=== PATIENT | male | born 1965 | race Caucasian/White ===

== ENCOUNTER 2024-11-29 07:06 | Outpatient (CLI) | payer OTHER, SELFPAY ==
--- NOTE | 2024-11-29 07:15 | CRLHL7_ITS ---
For Patients: As a result of the Century Cures Act, medical imaging exams and procedure reports are released immediately into your electronic medical record. You may view this report before your referring provider. If you have questions, please contact your health care provider. EXAM: MRI OF THE LEFT SHOULDER WITHOUT CONTRAST CLINICAL INDICATION: Left shoulder pain. COMPARISON PLAIN FILMS: 11/15/2024. COMPARISON CROSS-SECTIONAL IMAGING STUDIES: None available at time of interpretation. TECHNICAL: Axial, sagittal oblique and coronal oblique T1, PD, PD FS and T2-weighted images. Shoulder surface coil. FINDINGS: ROTATOR CUFF TENDONS AND MUSCLES AND DELTOID: Supraspinatus: Full-thickness tear with medial retraction to the superior glenoid. Diffuse thickening and fraying of the retracted tendon consistent with advanced tendinopathy. No muscle atrophy or edema. Infraspinatus: Full-thickness tear of the infraspinatus tendon with medial retraction. There is additional delaminating tear at the myotendinous junction. Diffuse thickening and fraying of the retracted tendon consistent with advanced tendinopathy. Mild muscle edema. Jpjd-ju-[id number] muscle atrophy. Subscapularis: [id number] tendinopathy. No tendon tear. No muscle atrophy or edema. Teres Minor: No tendinosis, tendon tearing, muscle atrophy or muscle edema. Deltoid: No muscle atrophy or edema. BURSA: Subacromial-subdeltoid: Fluid in the subacromial subdeltoid bursa. BICEPS TENDON, LONG HEAD: The long head of the biceps tendon is appropriately positioned within the bicipital groove without tendon subluxation or dislocation. The biceps christopher mechanism is intact. The biceps anchor appears grossly intact. There is no significant tendinosis or tendon tearing. CORACOACROMIAL ARCH: Acromial Morphology: Type 2 acromial morphology. No abnormal lateral or anterior downward sloping of the acromion. Moderate-sized broad subacromial enthesophyte. No os acromiale. Acromiohumeral Interval: Superior subluxation of the humeral head with narrowed interval. Coracohumeral Interval: Normal. ACROMIOCLAVICULAR JOINT REGION: AC Joint: Prominent arthropathy with inferior marginal osteophytes. Ligaments: The coracoclavicular ligaments are intact. GLENOHUMERAL JOINT: Joint space: Moderate-sized joint effusion. Mild synovitis. No loose body. Humeral Head Articular Cartilage: No focal cartilage defect or underlying subchondral marrow changes. Glenoid Articular Cartilage: Moderate chondromalacia with subchondral cystic change focally in the posterior glenoid. Labrum: No labral tear or paralabral cyst. Alignment: Superior subluxation of the humeral head. No posterior decentering. Capsule: No capsular edema or abnormal capsular thickening. OSSEOUS STRUCTURES: No fracture, marrow edema or marrow replacement process. OTHER FINDINGS: There is no abnormality within the suprascapular or spinoglenoid notches nor within the quadrilateral space. No axillary adenopathy or mass. IMPRESSION: 1. Full-thickness tear of the entire supraspinatus tendon with medial retraction and advanced tendinopathy. 2. Full-thickness tear of the entire infraspinatus tendon with medial retraction, delaminating tear at the myotendinous junction, advanced tendinopathy, mild muscle edema and mild to moderate muscle atrophy. 3. Subscapularis tendinopathy. 4. Focal chondromalacia in the posterior glenoid. 5. Glenohumeral joint effusion and fluid in the subacromial subdeltoid bursa. 6. Superior subluxation of the humeral head. 7. Subacromial enthesophyte. 8. Prominent joint arthropathy in the acromioclavicular joint. Dictated by Dallin Pires MD @ 11/30/2024 8:31:09 AM (Electronically Signed)
== END 2024-11-29 07:07 | disposition home or self-care (01) ==
PROVIDERS: PCP Internal Medicine; Visit Provider Internal Medicine
DX: M25.512 Pain in left shoulder (principal); S46.812A Strain of other muscles, fascia and tendons at shoulder and upper arm level, left arm, initial encounter; M75.102 Unspecified rotator cuff tear or rupture of left shoulder, not specified as traumatic; M25.412 Effusion, left shoulder; M94.212 Chondromalacia, left shoulder; S49.90XA Unspecified injury of shoulder and upper arm, unspecified arm, initial encounter
CPT/HCPCS: 73221

== ENCOUNTER 2024-12-23 07:02 | Day surgery (SDC) | payer OTHER, SELFPAY ==
[2024-12-23] MEDS: LACTATED RINGERS 1000 ML 1,000 ML 100 ML IV (07:15)
[2024-12-23 07:24] VITALS: BMI 33.9
[2024-12-23 07:33] VITALS: BP 141/87; PULSE 54; RESP 16; TEMP 37; O2SAT 97
[2024-12-23] MEDS: SODIUM CHLORIDE 0.9 % (FLUSH) 10 ML SYRINGE IVF (07:43)
--- NOTE | 2024-12-23 08:54 | W.PM.H&PU ---
History & Physical Update History & Physical Update H&P Reviewed and patient assessed: The following changes are noted below H&P Updates: Patient took Lovenox dose this morning. Will need to reschedule surgery to next week.
--- NOTE | 2024-12-23 09:15 | SUR.PREOP ---
Patient surgery cancelled due to patient giving himself Lovenox injection this morning at 630am.
== END 2024-12-23 09:19 | disposition home or self-care (01) ==
LOC: OR 07:03
PROVIDERS: PCP Internal Medicine; Visit Provider Orthopaedic Surgery
PROC: (CPT 29805; principal; 2024-12-23 13:15)
DX: Z53.09 Procedure and treatment not carried out because of other contraindication (principal); Z79.01 Long term (current) use of anticoagulants
CPT/HCPCS: J7120

== ENCOUNTER 2024-12-26 09:40 | Day surgery (SDC) | payer OTHER, SELFPAY ==
[2024-12-26] VITALS (13 sets, daily range): BP systolic 115–156; BP diastolic 72–140; PULSE 61–72; RESP 12–24; TEMP 36.3–36.6; O2SAT 95–97; BMI 33.5
[2024-12-26] MEDS: LACTATED RINGERS 1000 ML 1,000 ML 100 ML IV (09:45)
[2024-12-26] MEDS: SODIUM CHLORIDE 0.9 % (FLUSH) 10 ML SYRINGE IVF (09:59)
[2024-12-26] MEDS: fentaNYL 100 MCG/2 ML inj IVP (10:50)
[2024-12-26] MEDS: MIDAZOLAM HCL 1 MG/ML inj IVP (10:50)
--- NOTE | 2024-12-26 10:58 | SUR.PREOP ---
TIME?OUT:?1050 PT/eloisa howard RN/zo valverde MDA?VERIFICATION?OF?SURGICAL?SITE,?PROCEDURE,?AND?CONSENT OBTAINED?PRIOR?TO?INVASIVE?PROCEDURE.
--- NOTE | 2024-12-26 11:00 | W.PM.H&PU ---
History & Physical Update History & Physical Update H&P Reviewed and patient assessed: No changes noted
--- NOTE | 2024-12-26 11:00 | PM.ORPRC ---
Procedure Note Date of procedure: 12/26/24 Procedure: PREOPERATIVE DIAGNOSES: 1. Left shoulder rotator cuff tear. 2. Left shoulder subacromial impingement syndrome. POSTOPERATIVE DIAGNOSES: 1. Left shoulder rotator cuff tear - supraspinatus and infraspinatus 2. Left shoulder subacromial impingement syndrome. 3. Left shoulder chondromalacia NAME OF OPERATION: 1. Left shoulder arthroscopic rotator cuff repair. 2. Left shoulder arthroscopic bursectomy, subacromial decompression/partial acromioplasty. 3. Left shoulder arthroscopic limited debridement SURGEON: Guanakito Stark MD LOGISTICS ANALYTICS MANAGER: Daphne Avalos P.A.-C.. An photographer assistant was critical for this case to aid in patient positioning, suture manipulation, arm positioning, instrument positioning, and wound closure. ANESTHESIA: General plus preoperative supraclavicular block. IMPLANTS: Arthrex 2.6 mm FiberTak anchors x3 and 5.5 mm BioComposite SwiveLock anchors x2 COMPLICATIONS: None ESTIMATED BLOOD LOSS: 10 mL INDICATIONS: The patient is a pleasant, 59-year-old male who who has experienced left shoulder pain and weakness following an injury that he sustained approximately 6 weeks ago. Physical exam and imaging were consistent with large, acute rotator cuff tear. Given these findings, recommendation was made for surgery to repair the cuff and restore shoulder function. FINDINGS: Exam under anesthesia revealed stable shoulder with full range of motion. The diagnostic arthroscopy revealed area of grade 3 chondromalacia involving the inferior glenoid with degenerative tearing of the superior and inferior labrum. The Subscapularis tendon was intact with healthy insertion site. The rotator cuff tendon was found to have full-thickness tear of the entire supraspinatus and infraspinatus, which were retracted medially just lateral to the glenoid. Teres minor was intact. The long head of the biceps tendon was intact and located within the bicipital groove. There was degenerative tearing of the superior and inferior labrum. No loose bodies were identified within the pouch or subscapularis recess. In the subacromial space there was diffuse bursal inflammation and downsloping anterior acromion. PROCEDURE: Following a thorough discussion of risks, benefits, and alternatives, consent was obtained and the operative shoulder was marked. A supraclavicular nerve block was performed by anesthesia staff in preop holding. The patient was brought to the operating room and placed supine on the operating table. Induction of anesthesia was completed, and patient was given IV clindamycin preoperatively for prophylaxis. Patient was placed into the beach chair position. Head was placed in the padded head neck surgeon in neutral alignment, and all bony prominences were well padded. The operative shoulder and upper extremity were prepped and draped in the appropriate sterile fashion using ChloraPrep. A surgical time-out was performed confirming patient identity, surgical site, and procedure. The glenohumeral joint was injected with 40 mL of normal saline using and 18g spinal needle from a posterior approach. Posterior portal was established. Anterior portal was established after localization with a spinal needle and a 7.0 mm cannula was placed here. Diagnostic arthroscopy was then performed with findings as noted above. Frayed cartilage of the inferior glenoid was debrided with the motorized shaver. After debridement remnant cartilage was stable. Frayed cartilage of the superior and inferior labrum were also debrided using the motorized shaver. After debridement, the biceps anchor was confirmed to be stable. Can was then placed in the subacromial space. A lateral portal was established after localization with spinal needle. The passport cannula was placed here. Subacromial bursectomy was performed with a combination of radiofrequency ablator, and shaver. Bone-cutting shaver was used to perform and partial acromioplasty removing the downsloping anterior aspect of the acromion. Following this, further inspection of the rotator cuff was performed. This identified the tear as noted above. The margins of the tear were debrided, and the greater tuberosity was lightly decorticated with the bone-cutting shaver to create. The cuff was easily mobilized back to its footprint. Next, three knotless 2.6 mm FiberTak anchors were placed along the medial aspect of the supraspinatus and infraspinatus footprints. Prior to placement of each anchor, small stab incisions were made off the lateral aspect of the acromion. After placement of the anchors, the [employer] suture Passer was used to shuttle each set of sutures through the rotator cuff just lateral to the musculotendinous junction. Once all all 3 sets of sutures had been passed, medial row repair was completed using the knotless sutures. Lateral row repair was then completed using two 5.5 SwiveLock anchors, which were placed lateral to the supraspinatus and infraspinatus footprint. Each lateral row anchor incorporated 1 FiberTape from the previously passed medial row anchors. The knotless sutures from each lateral row anchor were used to further augment the cuff repair. After all anchors had been placed in sutures tension, remnant sutures were cut and removed. Excellent securing of the rotator cuff was achieved with good tension on the cuff. The rotator cuff was re-probed and found to be stable. Surgical instruments and cannulas were removed. Excess fluid was drained, portals were closed with 3-0 nylon. Sterile dressings were applied followed by application of an abduction sling.. The patient was rotated back to the supine position, awoken from anesthesia, and transferred to the PACU in stable condition. PLAN: 1. Discharged to home day of surgery. 2. Ice for pain and swelling. 3. Tylenol and oxycodone as needed for pain control. 4. Abduction sling at all times except for ROM and showering. -Remove sling several times daily for pendulum exercises finger, wrist, and elbow range of motion. 5. Follow-up in orthopedic clinic in 10-14 days for wound check and suture removal. 6. Will initiate formal physical therapy 5-6 weeks postoperatively per the complex rotator cuff repair protocol
[2024-12-26] MEDS: CLINDAMYCIN 900 MG/50 ML-D5W 900 MG/50 ML PIGGYBACK 100 MG IVPB (11:30)
--- NOTE | 2024-12-26 11:53 | P.NB_ITS ---
Nerve Block Nerve Block Time Seen by Provider: 10:53 Date Seen: 12/26/24 Type of block requested by surgeon for post-operative analgesia: supraclavicular Side: left Time out performed: Yes Verification of patient name: Yes Verification of date of : Yes Site marking: site marked Name of person performing procedure: Denys Continuous monitoring Was continuous monitoring of O2 sat, B/P, vocational rehabilitation supervisor, recorded every 15 minutes?: Yes Procedure Checklist: sterile prep, needles and gloves Ultrasound guided. Images saved: Yes Medications given in 5ml increments after negative aspiration: Marcaine %: 0.25 mL: 5 Needle gauge: 22 and Exparel mL: 10 Patient tolerated procedure well: Yes Block Charges Block Charge (with Pro Fee): Brachial Plexus Use of Ultrasound Machine for Block: Yes- US Guidance/pain block
--- NOTE | 2024-12-26 11:54 | P.ANES_ITS ---
Anesthesia Charges Start Date/Time Anesthesia Start Date: 12/26/24 Anesthesia Start Time: 11:06 Stop Date/Time Anesthesia Stop Date: 12/26/24 Anesthesia Stop Time: 14:16 Coding CPT Codes CPT Codes: ANESTH SURGERY OF SHOULDER - 38294 ([id number]) P2 - PATIENT W/MILD SYST DISEASE, QK - CRUSHER LOADER OPERATOR 2-4 CNCRNT ANES PROC, QX - PIECE PRESSER SVC W/ MD MED DIRECTION
--- NOTE | 2024-12-26 11:54 | W.ANESCHARGE ---
Anesthesia Charges Start Date/Time Anesthesia Start Date: 12/26/24 Anesthesia Start Time: 11:06 Stop Date/Time Anesthesia Stop Date: 12/26/24 Anesthesia Stop Time: 14:16 Coding CPT Codes CPT Codes: ANESTH SURGERY OF SHOULDER - 54107 ([id number]) P2 - PATIENT W/MILD SYST DISEASE, QK - BUCKLE STRINGER 2-4 CNCRNT ANES PROC, QX - BIOMED TECH SVC W/ MD MED DIRECTION
[2024-12-26] MEDS: EPINEPHrine 1 MG in SODIUM CHLORIDE IRRIG SOLUTION 3,000 ML 9003 MG IRRIGATION ×4 (12:00→13:30)
[2024-12-26] MEDS: LIDOCAINE 1%-EPI 1:100,000 20 ML INFILTRATI (12:24)
[2024-12-26] MEDS: EPINEPHrine 1 MG in SODIUM CHLORIDE IRRIG SOLUTION 3,000 ML 3000 MG IRRIGATION ×2 (13:20→13:40)
--- NOTE | 2024-12-26 14:17 | P.ANES_ITS ---
Anesthesia Charges Start Date/Time Anesthesia Start Date: 12/26/24 Anesthesia Start Time: 11:06 Stop Date/Time Anesthesia Stop Date: 12/26/24 Anesthesia Stop Time: 14:16 Coding CPT Codes CPT Codes: ANESTH SURGERY OF SHOULDER - 32335 ([id number]) P2 - PATIENT W/MILD SYST DISEASE, QK - HYDRAULIC ENGINEER 2-4 CNCRNT ANES PROC, QX - EXECUTIVE MARKETING ASSISTANT SVC W/ MD MED DIRECTION
--- NOTE | 2024-12-26 14:17 | W.ANESCHARGE ---
Anesthesia Charges Start Date/Time Anesthesia Start Date: 12/26/24 Anesthesia Start Time: 11:06 Stop Date/Time Anesthesia Stop Date: 12/26/24 Anesthesia Stop Time: 14:16 Coding CPT Codes CPT Codes: ANESTH SURGERY OF SHOULDER - 96258 ([id number]) P2 - PATIENT W/MILD SYST DISEASE, QK - INTERIOR PLANT CARETAKER 2-4 CNCRNT ANES PROC, QX - HORSE TRAINER SVC W/ MD MED DIRECTION
--- NOTE | 2024-12-26 14:28 | SUR.PHASEI ---
Patient arrived in PACU awake and appropriate. Complained of some burning sensation in the left shoulder. When asked, stated pain level was a 2.
--- NOTE | 2024-12-26 14:44 | SUR.PHASEI ---
Patient meets discharge criteria for PACU.
== END 2024-12-26 15:47 | disposition home or self-care (01) ==
PROVIDERS: PCP Internal Medicine; Visit Provider Orthopaedic Surgery
PROC: (CPT 29805; principal; 2024-12-26 11:00)
DX: M75.122 Complete rotator cuff tear or rupture of left shoulder, not specified as traumatic (principal); M75.42 Impingement syndrome of left shoulder; M94.212 Chondromalacia, left shoulder; G89.18 Other acute postprocedural pain; R73.03 Prediabetes; I10 Essential (primary) hypertension; D68.59 Other primary thrombophilia; Z79.01 Long term (current) use of anticoagulants; Z86.718 Personal history of other venous thrombosis and embolism
CPT/HCPCS: 29827; 29826; 29822; 01630; 64415; 76942; C1713; J0171; J0330; J0665; J0666; J0736; J1100; J2250; J2371; J2405; J2704; J3010; J3490; J7120; L3670